=== PATIENT | female | born 1960 | race Caucasian/White ===

== ENCOUNTER 2017-01-06 07:00 | Day surgery (SDC) | payer BC ==
[~2017-01-06 07:00] MED LIST: Lactated Ringers 1,000 ML IV SCH
[2017-01-06] MEDS ORDERED: fentaNYL 100 MCG/2 ML SDV ONE (07:41)
[2017-01-06] MEDS ORDERED: Propofol 200 MG/20 ML SDV ONE (07:41)
[2017-01-06 10:16] VITALS: BP 142/92
--- NOTE | 2017-01-06 14:00 | OR ---
PREOPERATIVE DIAGNOSIS: Family history of colon cancer. POSTOPERATIVE DIAGNOSIS: A small polyp at 15 cm removed; otherwise, normal exam. PROCEDURE PROPOSED: Total flexible colonoscopy. PROCEDURE DONE: Total flexible colonoscopy with polypectomy x1. INDICATION: This is a 56-year-old female, who comes in for colonic surveillance due to her family history of colon cancer. She has had 2 previous colonoscopies. She denies any symptomatology. TECHNIQUE: The patient was brought to the endoscopy suite, placed in left lateral decubitus position. She was sedated with propofol per [employer]. The flexible video colonoscope was then passed transanally and under visualization, advanced to the cecum. Examination revealed normal ascending, transverse, and descending colon. In the low sigmoid at about 15 cm, there was a small polyp removed with several bites of the cold biopsy forceps and submitted for pathologic examination. The remainder of the rectosigmoid was normal. As the scope was then withdrawn, she was noted to have some internal hemorrhoids. She tolerated the procedure well. IMPRESSION: 1. Low sigmoid polyp at 15 cm, removed. 2. Internal hemorrhoids. 3. Family history of colon cancer. PLAN: The patient will be sent a letter with the pathology report and she should continue with colonic surveillance every 5 years hereafter due to her family history and now due to her history of polyps. SCM: 01/06/2017 09:12:05 MODL: 01/06/2017 13:27:02 /[id number]
--- NOTE | 2017-01-12 08:22 | LETTER ---
01/09/2017 RE: ANNA HENNESSY : 1960 Dear Anna: The polyp removed from your colon was considered a hyperplastic polyp, which is not considered a precancerous type polyp. I do feel, however, with your family history of colon cancer that you should continue with colon surveillance every 5 years hereafter. Respectfully,
== END 2017-01-06 10:23 | disposition home or self-care (01) ==
LOC: VM.SDS 07:00
PROVIDERS: ATTEND Surgery
DX: K63.5 Polyp of colon (principal); K64.8 Other hemorrhoids; F41.8 Other specified anxiety disorders; I10 Essential (primary) hypertension; K21.9 Gastro-esophageal reflux disease without esophagitis; Z98.890 Other specified postprocedural states; Z79.899 Other long term (current) drug therapy; F17.210 Nicotine dependence, cigarettes, uncomplicated
CPT/HCPCS: 45380; J2704; J3010; J7120

== ENCOUNTER 2017-03-19 22:31 | Emergency (ER) | payer BC, OTHER ==
[2017-03-19 22:37] VITALS: BP 100/56
[2017-03-19] MEDS ORDERED: Chlorhexidine Gluconate 0.12% Oral Rinse 15 ML Cup MUCMEM ONE (23:28)
[2017-03-19] MEDS ORDERED: Take Home: Amoxicillin/Clavulanate K 875-125 MG Tab, 2 Tab Pack PO ONE (23:44)
[2017-03-19] MEDS ORDERED: Take Home: Acetaminophen/Codeine 300 MG/30 MG, 5 Tab Pack PO ONE (23:58)
--- NOTE | 2017-03-20 21:12 | ER ---
Date of Service: 03/19/2017 SUBJECTIVE: Anna presents to the emergency room with complaints of facial pain post fall. The patient states that she was walking out in her shed when she tripped over a cart falling face first onto the ground. She states that she thinks it is possible that she did have a loss of consciousness during this event. She states that she has not been experiencing any neck pain post fall and states that the discomfort is primarily isolated to her nose, oral cavity, and upper lip, as well as complaints of a headache. She states that she has been consuming alcohol this evening. She states that she is not experiencing any weakness in her upper or lower extremities. PAST MEDICAL HISTORY: 1. GERD. 2. Hypertension. 3. Depression. 4. Anxiety. 5. Vitamin D deficiency. MEDICATIONS: 1. Aspirin. 2. Chantix. 3. Valsartan/hydrochlorothiazide. 4. Prilosec. 5. Aleve. 6. Multivitamin. 7. Claritin. 8. Flonase. 9. Klonopin. 10.Citalopram. 11.Vitamin D3. ALLERGIES: Lisinopril. REVIEW OF SYSTEMS: General: Denies any recent illness HEENT: Please see history of present illness. Respiratory: No shortness of breath. Denies any chest trauma. Cardiac: Denies any chest discomfort. Abdomen: Denies any abdominal pain. No nausea, vomiting, or diarrhea. No melena, hematochezia, or hematemesis. Denies any recent GI illnesses. Pelvis: Denies any pelvic pain. Musculoskeletal: Does complain of abrasion to her left lower extremity. No other significant musculoskeletal trauma noted. PHYSICAL EXAMINATION: General: This is a 57-year-old female patient, in no acute distress. Vital Signs: Blood pressure is 100/56, pulse rate is 73, temperature is 35.1, respiratory rate 16, O2 saturations 98%. Skin: Warm, pink, and dry. HEENT: Head is normocephalic. The patient's calvarium is within normal limits. No obvious trauma noted to this area. Ears, TMs are clear. There is no hemotympanum. Eyes, PERRLA. Extraocular movements are intact. Nose, she does have some edema and resolved bilateral epistaxis from both nares. She does have evidence of dry blood in her oral mucosa as well as to her upper lip. She does have evidence of a small puncture wound. The patient is noted to have a large hematoma with a subcentimeter puncture wound to the inside of her upper lip. No obvious trauma noted to the teeth. She does have increased discomfort with palpation of the teeth, however. Chest: No chest wall trauma noted. Lungs: Clear to auscultation. Heart: Regular rate and rhythm. Abdomen: No abdominal trauma. There are no masses on palpation. Pelvis: Stable. Spine: No midline C-spine, thoracic, or lumbar discomfort noted on palpation. Neurologic: Cranial nerves 2 through 12 are intact. The patient's speech is fluent but slurred. Her gait is within normal limits. CT scan of the patient's brain, C-spine, and facial bones were obtained. She did have evidence of a possible nondisplaced chip fracture of the nasal bone. No other obvious head, facial, or C-spine trauma noted. Remainder of her physical examination is within normal limits. EMERGENCY ROOM COURSE: The patient's face was prepped and draped in the usual sterile fashion. Chlorhexidine oral solution was used to cleanse the laceration to the inside of her upper lip. The laceration/puncture wound was anesthetized with a total of approximately 2 mL of 1% lidocaine. The patient tolerated this well. One interrupted 5-0 nylon suture was used to close the laceration with excellent wound approximation and hemostasis achieved. The patient tolerated this well. She remained stable in my care in the emergency room. ASSESSMENT: 1. Nondisplaced nasal bone fracture. 2. Puncture/laceration to upper lip. 3. Closed head injury. PLAN: The patient will be discharged. The patient was started on Augmentin 875 mg twice daily for 10 days. Also did start her on a short course of Tylenol No. 3 with instructions to take 1 every 6 hours as needed for pain. Suture removal in the clinic in 8 to 10 days. Return if there is any redness, swelling, or discharge from the upper lip. Also return if she develops any worsening headache, nausea, vomiting, or decreased level of consciousness. All questions were answered. MWK: 03/20/2017 13:49:11 MODL: 03/20/2017 21:05:32 /[id number]
== END 2017-03-20 00:14 | disposition home or self-care (01) ==
LOC: VM.ED 22:31
DX: S02.2XXA Fracture of nasal bones, initial encounter for closed fracture (principal); S09.90XA Unspecified injury of head, initial encounter; S01.511A Laceration without foreign body of lip, initial encounter; I10 Essential (primary) hypertension; K21.9 Gastro-esophageal reflux disease without esophagitis; F41.9 Anxiety disorder, unspecified; F32.9 Major depressive disorder, single episode, unspecified; Z79.82 Long term (current) use of aspirin; Z79.899 Other long term (current) drug therapy; Z88.8 Allergy status to other drugs, medicaments and biological substances; W19.XXXA Unspecified fall, initial encounter
CPT/HCPCS: 12011; 70450; 70486; 72125; 99284; A9270